=== PATIENT | male | born 2005 | race African-American/Black ===

== ENCOUNTER 2024-10-28 09:23 | Emergency (ER) | payer OTHER ==
[~2024-10-28] VITALS: Ht 182.9 cm; Wt 61.9 kg
[2024-10-28] MEDS ORDERED: DOXYCYCLINE HY100 MG PO (10:06)
[2024-10-28] MEDS: DOXYCYCLINE HYCLATE TABLET 100 MG TAB PO ONE (10:17)
[2024-10-28] MEDS: CEFTRIAXONE 500 MG VIAL IM ONE (10:17)
[2024-10-28 10:30] VITALS: PULSE 60; RESP 16; TEMP 98.3; O2SAT 99
== END 2024-10-28 10:30 | disposition home or self-care (01) ==
LOC: FSED 09:30
DX: R36.9 Urethral discharge, unspecified (principal); A64 Unspecified sexually transmitted disease
CPT/HCPCS: 81003; 87086; 87491; 87591; 96372; 99284; J0696

== ENCOUNTER 2024-11-11 13:03 | Emergency (ER) | payer OTHER ==
[~2024-11-11] VITALS: Ht 182.9 cm; Wt 61.4 kg
[~2024-11-11 13:03] MED LIST: DOXYCYCLINE HY100 MG PO
[2024-11-11] MEDS ORDERED: ACYCLOVIR400 MG PO (13:26)
[2024-11-11 13:33] VITALS: PULSE 63; RESP 16; TEMP 98.1; O2SAT 100
== END 2024-11-11 13:33 | disposition home or self-care (01) ==
LOC: FSED 13:11
DX: A63.8 Other specified predominantly sexually transmitted diseases (principal); A60.00 Herpesviral infection of urogenital system, unspecified
CPT/HCPCS: 81003; 99283

== ENCOUNTER 2024-11-22 21:21 | Emergency (ER) | payer SELFPAY ==
[~2024-11-22] VITALS: Ht 182.9 cm; Wt 61.7 kg
[~2024-11-22 21:21] MED LIST changes: +ACYCLOVIR400 MG PO
[2024-11-22 21:30] VITALS: PULSE 63; RESP 17; TEMP 98.2
[2024-11-22] MEDS ORDERED: DOXYCYCLINE HY100 MG PO (22:09)
[2024-11-22] MEDS: CEFTRIAXONE 500 MG VIAL IM ONE (22:40)
[2024-11-22] MEDS: AZITHROMYCIN 250 MG TAB PO ONE (22:40)
[2024-11-22 22:46] VITALS: BP 109/70; PULSE 61; RESP 14; TEMP 98; O2SAT 99
== END 2024-11-22 22:49 | disposition home or self-care (01) ==
LOC: FSED 21:25
DX: R36.9 Urethral discharge, unspecified (principal); A64 Unspecified sexually transmitted disease; R30.0 Dysuria
CPT/HCPCS: 96372; 99283; J0696